=== PATIENT | male | born 1995 ===

== ENCOUNTER 2017-05-12 09:22 | Emergency (ER) | payer OTHER ==
[~2017-05-12] VITALS: Ht 182.9 cm; Wt 95.2 kg
[~2017-05-12 09:22] MED LIST: ACET325; ALBU90OI; ALBU90OI INH; AMOX250 PO; AMOX500 PO; CIME400 PO; CODACE30 PO; DOXY100 PO; FAMO20 PO; GUAI120S1 PO; HYDACE5 PO; IBUP100S PO; LOPE2C PO; MONT5TCH; Naprosyn500 MG PO; OMEP20ER PO; PENVK500 PO; PRED20 PO; PROM25 PO; RANI150 PO; RXALBOI INH; SULTRIDS PO
[2017-05-12] MEDS ORDERED: Norco 5-325 Ta1 EACH PO (10:22)
== END 2017-05-12 10:29 | disposition home or self-care (01) ==
LOC: ER 09:22
DX: M25.512 Pain in left shoulder (principal); J45.909 Unspecified asthma, uncomplicated; K58.9 Irritable bowel syndrome, unspecified; K21.9 Gastro-esophageal reflux disease without esophagitis; F17.290 Nicotine dependence, other tobacco product, uncomplicated; X50.0XXA Overexertion from strenuous movement or load, initial encounter
CPT/HCPCS: 96372; 99283; J1885

== ENCOUNTER → 2017-06-29 | Outpatient (CLI) | payer OTHER ==
[~2017-06-29] MED LIST changes: +Norco 5-325 Ta1 EACH PO
== END | disposition home or self-care (01) ==
LOC: LAB EV 12:32
DX: N34.2 Other urethritis (principal)
CPT/HCPCS: 87086

== ENCOUNTER 2018-05-16 16:01 | Emergency (ER) | payer OTHER ==
[~2018-05-16] VITALS: Ht 182.9 cm; Wt 79.4 kg
[2018-05-16] MEDS ORDERED: KETO10 PO (16:16)
[2018-05-16] MEDS ORDERED: Cyclobenzaprine5 MG PO (16:16)
== END 2018-05-16 16:20 | disposition home or self-care (01) ==
LOC: ER 16:01
DX: M75.102 Unspecified rotator cuff tear or rupture of left shoulder, not specified as traumatic (principal); K21.9 Gastro-esophageal reflux disease without esophagitis; Z87.891 Personal history of nicotine dependence; J45.909 Unspecified asthma, uncomplicated
CPT/HCPCS: 99283

== ENCOUNTER 2018-09-24 19:44 | Emergency (ER) | payer OTHER ==
[~2018-09-24] VITALS: Ht 182.9 cm; Wt 83.9 kg
[~2018-09-24 19:44] MED LIST changes: +Cyclobenzaprine5 MG PO; +KETO10 PO
== END 2018-09-24 21:04 | disposition home or self-care (01) ==
LOC: ER 19:44
DX: S50.12XA Contusion of left forearm, initial encounter (principal); Z87.891 Personal history of nicotine dependence; V86.56XA Driver of dirt bike or motor/cross bike injured in nontraffic accident, initial encounter
CPT/HCPCS: 73090; 99283-25

== ENCOUNTER 2020-01-02 12:54 | Emergency (ER) | payer OTHER ==
[~2020-01-02] VITALS: Ht 175.3 cm; Wt 87.1 kg
[2020-01-02] MEDS ORDERED: ALBU90OI INH (13:30)
== END 2020-01-02 14:05 | disposition home or self-care (01) ==
LOC: ER 12:54
DX: J45.909 Unspecified asthma, uncomplicated (principal); Z87.891 Personal history of nicotine dependence
CPT/HCPCS: 71046; 99283-25

== ENCOUNTER 2020-11-28 20:59 | Emergency (ER) | payer OTHER ==
[~2020-11-28] VITALS: Ht 175.3 cm; Wt 86.2 kg
== END 2020-11-29 01:10 | disposition left against medical advice (07) ==
LOC: ER 20:59
DX: M25.562 Pain in left knee (principal); Z53.21 Procedure and treatment not carried out due to patient leaving prior to being seen by health care provider
CPT/HCPCS: 99282

== ENCOUNTER 2021-06-07 12:02 | Emergency (ER) | payer OTHER ==
[~2021-06-07] VITALS: Ht 175.3 cm; Wt 76.2 kg
[2021-06-07 12:45] LABS: BASOPHILS ABSOLUTE AUTO 0.02 K/mm3 (0.00-0.23); BASOPHILS PERCENT AUTO 0 % (0-2); EOSINOPHILS ABSOLUTE AUTO 0.05 K/mm3 (0.00-0.68); EOSINOPHILS PERCENT AUTO 1 % (0-6); IMMATURE GRAN ABSOLUTE AUTO 0.01 K/mm3 (0.00-0.10); IMMATURE GRAN PERCENT AUTO 0 % (0-1); LYMPHOCYTES ABSOLUTE AUTO 1.12 K/mm3 (0.84-5.20); LYMPHOCYTES PERCENT AUTO 22 % (21-46); MONOCYTES ABSOLUTE AUTO 0.31 K/mm3 (0.16-1.47); MONOCYTES PERCENT AUTO 6 % (4-13); Mean Corpuscular HGB 32.1 pg (26.0-34.0); Mean Corpuscular HGB Conc 34.8 g/dL (31.5-36.5); Mean Corpuscular Volume 92 fL (80-100); Mean Platelet Volume 10.6 fL (9.1-12.4); NEUTROPHILS ABSOLUTE AUTO 3.61 K/mm3 (1.96-9.15); NEUTROPHILS PERCENT AUTO 70 % (41-73); Platelet Count 211 K/mm3 (150-400); RDW Coefficient Variation 12.2 % (11.7-14.2); RDW Standard Deviation 41.9 fL (35.1-46.3); Red Blood Cell Count 4.98 M/mm3 (4.30-5.90); White Blood Cell Count 5.12 K/mm3 (4.00-11.30)
[2021-06-07 13:00] LABS: Alanine Aminotransfer (ALT/SGP 24 U/L (12-78); Albumin, Blood 4.5 g/dL (3.4-5.0); Albumin/Globulin Ratio 1.4 (0.8-1.8); Alk Phos 59 U/L (50-136); Anion Gap 6 mmol/L (6-16); Aspartate Aminotrans (AST/SGOT 16 U/L (12-37); Blood Urea Nitrogen 11 mg/dL (8-24); Bun/Creatinine Ratio 10.9 (12.0-20.0); CO2, Blood 27 mmol/L (21-32); Calcium, Blood 9.3 mg/dL (8.5-10.1); Chloride, Blood 107 mmol/L (98-108); Creatinine, Blood 1.01 mg/dL (0.60-1.20); Globulin, Blood 3.3 g/dL (2.2-4.0); Glomerular Filtration Rate >60 (60-); Glucose, Blood 106 mg/dL (70-99); Potassium, Blood 3.6 mmol/L (3.5-5.5); Sodium, Blood 140 mmol/L (136-145); Total Protein, Blood 7.8 g/dL (6.4-8.2)
[2021-06-07 13:02] LABS: Source, Urine Clean Catch
[2021-06-07 13:09] LABS: Appearance, Urine Clear (Clear); Bilirubin, Urine Neg (Neg); Blood, Urine Neg (Neg); Color, Urine Yellow (P-Yellow); Glucose Qualitative, Urine Neg (Neg); Ketones, Urine 1+ (Neg); Leukocyte Esterase, Urine Neg (Neg); Nitrite, Urine Neg (Neg); Protein, Urine Neg (Neg); Specific Gravity, Urine 1.005 (1.003-1.022); Urobilinogen, Urine NORM (Normal); pH, Urine 6.5 (5.0-8.0)
[2021-06-07 13:25] LABS: Influenza A, PCR NEGATIVE (NEGATIVE); Influenza B, PCR NEGATIVE (NEGATIVE); Resp Syncytial Virus, PCR NEGATIVE (NEGATIVE); SARS-Cov-2 (COVID-19) PCR, MMC NEGATIVE (NEGATIVE)
== END 2021-06-07 14:00 | disposition home or self-care (01) ==
LOC: ER 12:02
PROVIDERS: Physician Assistant
DX: R09.1 Pleurisy (principal); F17.290 Nicotine dependence, other tobacco product, uncomplicated; J45.909 Unspecified asthma, uncomplicated; K21.9 Gastro-esophageal reflux disease without esophagitis; Z20.822 Contact with and (suspected) exposure to COVID-19
CPT/HCPCS: 0241U; 36415; 71045; 80053; 81003; 83690; 84484; 85025; 93005; 93010; 96374; 99284-25; J2405; J7030

== ENCOUNTER 2021-08-30 09:50 | Emergency (ER) | payer OTHER ==
[~2021-08-30] VITALS: Ht 162.6 cm; Wt 77.1 kg
[2021-08-30] MEDS ORDERED: Amoxicillin500 MG PO (10:08)
[2021-08-30] MEDS ORDERED: LOPE2C PO (10:09)
== END 2021-08-30 10:35 | disposition home or self-care (01) ==
LOC: ER 09:50
DX: K02.9 Dental caries, unspecified (principal); J45.909 Unspecified asthma, uncomplicated; K21.9 Gastro-esophageal reflux disease without esophagitis; F17.290 Nicotine dependence, other tobacco product, uncomplicated; Z79.899 Other long term (current) drug therapy; Z91.041 Radiographic dye allergy status
CPT/HCPCS: 99282

== ENCOUNTER 2023-12-13 19:13 | Emergency (ER) | payer OTHER ==
[~2023-12-13] VITALS: Ht 175.3 cm; Wt 108.9 kg
[~2023-12-13 19:13] MED LIST changes: +Amoxicillin500 MG PO
[2023-12-13 19:31] VITALS: BP 157/95
== END 2023-12-13 22:08 | disposition home or self-care (01) ==
LOC: ER 19:13
DX: S93.401A Sprain of unspecified ligament of right ankle, initial encounter (principal); W17.81XA Fall down embankment (hill), initial encounter; J45.909 Unspecified asthma, uncomplicated; F17.290 Nicotine dependence, other tobacco product, uncomplicated; Z79.899 Other long term (current) drug therapy; Z91.041 Radiographic dye allergy status
CPT/HCPCS: 73610; 99283-25

== ENCOUNTER 2024-03-08 16:44 | Emergency (ER) | payer OTHER ==
[~2024-03-08] VITALS: Ht 175.3 cm; Wt 106.1 kg
[2024-03-08] MEDS ORDERED: DiphenhydrAMINE HCl 50 MG/ML 1ML Vial IV ONE (17:25)
[2024-03-08] MEDS ORDERED: MethylPREDNISolone Sod Succ 125 MG Vial IV ONE (17:25)
[2024-03-08] MEDS ORDERED: Famotidine 10 MG/ML 2ML Vial IV ONE (17:30)
[2024-03-08] MEDS ORDERED: NS 1,000 ML IV SCH (21:10)
[2024-03-08] MEDS ORDERED: Ondansetron HCl 2 MG / ML 2ML Vial IV ONE (21:15)
[2024-03-08] MEDS ORDERED: AMOCLA875 PO (22:32)
[2024-03-08] MEDS ORDERED: ONDA4 PO (22:32)
[2024-03-08] MEDS ORDERED: DICY20 PO (22:32)
[2024-03-08 22:45] VITALS: BP 147/92
== END 2024-03-08 22:50 | disposition home or self-care (01) ==
LOC: ER 16:44
DX: K58.0 Irritable bowel syndrome with diarrhea (principal); F17.290 Nicotine dependence, other tobacco product, uncomplicated; Z91.041 Radiographic dye allergy status
CPT/HCPCS: 74177; 83690; 96374-59; 96375; 99284-25; J1200; J2405; J2919; J7030; Q9967